=== PATIENT | female | born 1980 | race Caucasian/White ===

== ENCOUNTER 2023-08-15 09:16 | Outpatient (CLI) | payer OTHER, SELFPAY | END 2023-08-15 09:17 | disposition home or self-care (01) | PROVIDERS: PCP Physician Assistant Medical; Visit Provider Physician Assistant Medical | DX: Z00.00 Encounter for general adult medical examination without abnormal findings (principal); E78.5 Hyperlipidemia, unspecified; Z13.29 Encounter for screening for other suspected endocrine disorder; Z13.9 Encounter for screening, unspecified | CPT/HCPCS: 80053; 80061; 84443 ==

== ENCOUNTER 2024-09-10 07:28 | Outpatient (CLI) | payer OTHER, SELFPAY ==
--- NOTE | 2024-09-10 07:45 | CRLHL7_ITS ---
For Patients: As a result of the Century Cures Act, medical imaging exams and procedure reports are released immediately into your electronic medical record. You may view this report before your referring provider. If you have questions, please contact your health care provider. BILATERAL DIGITAL SCREENING MAMMOGRAM WITH COMPUTER-AIDED DETECTION AND TOMOSYNTHESIS CLINICAL HISTORY: Routine screening exam. COMPARISON: 09/05/2021. TECHNIQUE: Digital mammogram in CC and MLO projections including computer-aided detection (CAD). Tomosynthesis was used in this interpretation. BREAST COMPOSITION: The breasts are heterogeneously dense, which may obscure small masses. FINDINGS: RIGHT Breast: No suspicious findings. LEFT Breast: Nodular density in the retroareolar plane 12 o`clock 2 cm from the nipple. IMPRESSION: LEFT breast asymmetry/mass. RECOMMENDATIONS: LEFT breast ultrasound recommended. The [facility] will contact the patient. A lay language report of this examination will be provided to the patient. BI-RADS Category 0: Incomplete: Need Additional Imaging Evaluation Dictated by Michael Abdul MD @ 09/10/2024 11:10:07 AM jj/Dictated by: Michael Abdul MD @ 09/10/2024 11:10:00 AM (Electronically Signed)
== END 2024-09-10 07:29 | disposition home or self-care (01) ==
LOC: MAMMO 07:30
PROVIDERS: PCP Physician Assistant Medical; Visit Provider Physician Assistant Medical
DX: Z12.31 Encounter for screening mammogram for malignant neoplasm of breast (principal); R92.333 Mammographic heterogeneous density, bilateral breasts; N63.20 Unspecified lump in the left breast, unspecified quadrant
CPT/HCPCS: 77063; 77067

== ENCOUNTER 2024-09-17 07:57 | Outpatient (CLI) | payer OTHER, SELFPAY ==
--- NOTE | 2024-09-17 08:15 | CRLHL7_ITS ---
For Patients: As a result of the Cures Act, medical imaging exams and procedure reports are released immediately into your electronic medical record. You may view this report before your referring provider. If you have questions, please contact your health care provider. LEFT BREAST ULTRASOUND, 09/17/2024 CLINICAL HISTORY: Left breast mass/asymmetry. COMPARISON: 09/10/2024. TECHNIQUE: Real-time ultrasound imaging of left breast with imaging documentation. FINDINGS: Targeted sonogram left breast 12 o`clock 2 cm from the nipple performed. In this location, there is a circumscribed anechoic cyst with increased through transmission measuring 2.0 x 1.2 x 2.2 cm. At 1 o`clock 2 cm from the nipple there is an adjacent solid hypoechoic nodule measuring 6 x 4 x 5 millimeters consistent with benign fibroadenoma. No suspicious findings. IMPRESSION: Simple cyst left breast 12 o`clock 2 cm from the nipple measuring 2.2 cm. Benign fibroadenoma measuring 6 millimeters left breast 1 o`clock 2 cm from the nipple. RECOMMENDATIONS: Routine screening mammography Results and recommendations were discussed with the patient at the time of the exam. A lay language report of this examination will be provided to the patient. BI-RADS Category 2. Benign Dictated by Michael Abdul MD @ 09/17/2024 9:30:28 AM DEBBIE/marisela DW/Dictated by: Michael Abdul MD @ 09/17/2024 9:30:00 AM (Electronically Signed)
== END 2024-09-17 07:58 | disposition home or self-care (01) ==
PROVIDERS: PCP Physician Assistant Medical; Visit Provider Physician Assistant Medical
DX: N63.20 Unspecified lump in the left breast, unspecified quadrant (principal); R92.8 Other abnormal and inconclusive findings on diagnostic imaging of breast
CPT/HCPCS: 76642

== ENCOUNTER 2024-09-23 09:05 | Outpatient (CLI) | payer OTHER, SELFPAY ==
[2024-09-24 23:14] LABS: HPV Source Cervical/Vag; HPV, High Risk by TMA Not Detected
== END 2024-09-23 09:06 | disposition home or self-care (01) ==
PROVIDERS: PCP Physician Assistant Medical; Visit Provider Physician Assistant Medical
DX: E78.5 Hyperlipidemia, unspecified (principal); F41.9 Anxiety disorder, unspecified; N93.9 Abnormal uterine and vaginal bleeding, unspecified; Z11.51 Encounter for screening for human papillomavirus (HPV); Z12.4 Encounter for screening for malignant neoplasm of cervix
CPT/HCPCS: 80053; 80061; 84443; 87624; 87625; 88141; 88142